=== PATIENT | female | born 1985 ===

== ENCOUNTER 2018-08-09 14:36 | Emergency (ER) | payer OTHER ==
--- NOTE | 2018-08-09 15:57 | UC ---
Hand/Wrist HPI - HPI Summary HPI Summary: ABOUT 1 MONTH AGO STRUCK HER RIGHT WRIST ON A [employer]UCET AND BENT HER HAND BACKWARDS RESULTING IN RIGHT WRIST PAIN. 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 NO NUMBNESS/TINGLING. NO SWELLING. RIGHT-HAND DOMINANT. - History Of Current Complaint Chief Complaint: UCUpperExtremity Stated Complaint: WRIST PAIN Time Seen by Provider: 08/09/18 14:47 Hx Obtained From: Patient Hx Last Menstrual Period: 3 weeks Onset/Duration: Gradual Onset, Lasting Weeks, Still Present Severity Initially: Moderate Severity Currently: Moderate Pain Intensity: 3 Pain Scale Used: 0-10 Numeric Character Of Pain: Dull, Aching Aggravating Factor(s): Movement Alleviating Factor(s): Rest Associated Signs And Symptoms: Positive: Negative Related History: Dominant Hand Right - Allergies/Home Medications Allergies/Adverse Reactions: Allergies Allergy/AdvReac Type Severity Reaction Status Date / Time No Known Allergies Allergy Verified 08/09/18 15:13 Home Medications: Home Medications NK [No Home Medications Reported] 08/09/18 [History Confirmed 08/09/18] PMH/Surg Hx/FS Hx/Imm Hx Previously Healthy: Yes - Surgical History Surgical History: None - Family History Known Family History: Positive: Non-Contributory - Social History Alcohol Use: Occasionally Substance Use Type: None Smoking Status (MU): Never Smoked Tobacco Review of Systems All Other Systems Reviewed And Are Negative: Yes Constitutional: Positive: Negative Skin: Positive: Negative Respiratory: Positive: Negative Cardiovascular: Positive: Negative Gastrointestinal: Positive: Negative Musculoskeletal: Positive: Arthralgia, Decreased ROM. Negative: Edema Physical Exam Triage Information Reviewed: Yes Appearance: Well-Appearing, No Pain Distress, Well-Nourished Vital Signs: Initial Vital Signs Temp 98 F 08/09/18 15:09 Pulse 77 08/09/18 15:09 Resp 16 08/09/18 15:09 BP 118/83 08/09/18 15:09 Pulse Ox 99 08/09/18 15:09 Vital Signs Reviewed: Yes Eyes: Positive: Conjunctiva Clear ENT: Positive: Hearing grossly normal Neck: Positive: Supple Respiratory: Positive: No respiratory distress, No accessory muscle use Cardiovascular: Positive: Pulses Normal Abdomen Description: Positive: Soft Musculoskeletal: Positive: No Edema, ROM Limited @ - RIGHT WRIST, Other: - ROM RIGHT WRIST LIMITED BUT NO BONY OR SOFT TISSUE TENDERNESS. NO SNUFFBOX TENDERNESS. Neurological: Positive: Alert Psychological: Positive: Age Appropriate Behavior Skin: Negative: Rashes Diagnostics - Radiology RIGHT WRIST XRAYS Radiology Interpretation Completed By: Radiologist Summary of Radiographic Findings: NO FRACTURE OF THE WRIST IS NOTED. Hand/Wrist Course/Dx - Course Course Of Treatment: X-RAY UNREMARKABLE. LIKELY TENDINITIS FROM OVERUSE. WRIST SPLINT FOR COMFORT. OTC MEDICATIONS NEEDED. FOLLOW-UP WITH [facility] OR ORTHOPEDICS IF SHE IS NOT IMPROVING OVER THE NEXT COUPLE OF WEEKS. WORK NOTE PROVIDED UPON REQUEST. - Differential Dx/Diagnosis Provider Diagnosis: Right wrist tendonitis Discharge - Sign-Out/Discharge Documenting (check all that apply): Patient Departure All imaging exams completed and their final reports reviewed: Yes - Discharge Plan Condition: Stable Disposition: HOME Patient Education Materials: Tendinitis (ED), Wrist Sprain (ED) Forms: *Work Release Referrals: [facility] [Provider Group] - If Needed Isaac Campos MD [Medical Doctor] - If Needed Additional Instructions: XRAY TODAY NEGATIVE FOR FRACTURE OR DISLOCATION. YOUR SYMPTOMS SHOULD IMPROVE SIGNIFICANTLY OVER THE NEXT 1-2 WEEKS. IF YOU DO NOT IMPROVE EXPECTED FOLLOW- UP WITH YOUR PCP OR ORTHO. YOU MAY BENEFIT FROM REPEAT IMAGING AT THAT TIME. OTC IBUPROFEN OR ALEVE NEEDED FOR DISCOMFORT. REST, ICE, COMPRESS, ELEVATE. WEAR THE SPLINT AT NIGHT AND DURING THE DAY ABLE. THIS WILL HELP REDUCE THE STRAIN AND EXPEDITE RECOVERY. BE SURE TO GO THROUGH SLOW RANGE OF MOTION AND STRETCHING EXERCISES DAILY YOU ARE ABLE TO PREVENT STIFFENING UP AND MAKING THE DISCOMFORT WORSE. - Billing Disposition and Condition Condition: STABLE Disposition: Home
== END 2018-08-09 16:22 | disposition home or self-care (01) ==
LOC: EDBD 14:36 → UCEAST 14:36
DX: M77.8 Other enthesopathies, not elsewhere classified (principal)
CPT/HCPCS: 99202; G0463